=== PATIENT | male | born 1990 | race Caucasian/White ===

== ENCOUNTER 2018-10-20 12:03 | Emergency (ER) | payer BC ==
[2018-10-20 13:25] VITALS: BP 149/95
--- NOTE | 2018-10-20 13:34 | UC ---
Respiratory Complaint HPI - HPI Summary HPI Summary: Pt presents with c/o gradual onset of sneezing, runny nose, cough, sinus congestion X 1 week. Pt states cough is worsening with PND - History of Current Complaint Chief Complaint: UCRespiratory Stated Complaint: COUGH,CONGESTION Time Seen by Provider: 10/20/18 13:27 Hx Obtained From: Patient Onset/Duration: Gradual Onset, Lasting Days, Still Present, Worse Since - onset Timing: Constant Severity Initially: Mild Severity Currently: Mild Pain Intensity: 0 Character: Cough: Nonproductive Aggravating Factors: Exertion, Deep Breaths, Recumbent Position Alleviating Factors: Nothing Associated Signs And Symptoms: Positive: Nasal Congestion - Risk Factors Pulmonary Embolism Risk Factors: Negative Cardiac Risk Factors: Negative Pseudomonas Risk Factors: Negative Tuberculosis Risk Factors: Negative - Allergies/Home Medications Allergies/Adverse Reactions: Allergies Allergy/AdvReac Type Severity Reaction Status Date / Time No Known Allergies Allergy Verified 10/20/18 13:20 PMH/Surg Hx/FS Hx/Imm Hx Previously Healthy: Yes Other History Of: Negative For: HIV, Hepatitis B, Hepatitis C, Anticoagulant Therapy - Surgical History Surgical History: Yes Surgery Procedure, Year, and Place: Tonsillectomy - Family History Known Family History: Positive: Diabetes Negative: Cardiac Disease, Hypertension - Social History Occupation: Employed Full-time Lives: With Family Alcohol Use: Weekly Alcohol Amount: "Six pack ... two [days a week Substance Use Type: None Smoking Status (MU): Never Smoked Tobacco Type: Smokeless Tobacco Amount Used/How Often: 1/2 can daily Have You Smoked in the Last Year: Yes - uses smokeless tobacco Review of Systems All Other Systems Reviewed And Are Negative: Yes Constitutional: Positive: Chills Skin: Positive: Negative Eyes: Positive: Negative ENT: Positive: Nasal Discharge, Sinus Congestion Respiratory: Positive: Cough Cardiovascular: Positive: Negative Gastrointestinal: Positive: Negative Genitourinary: Positive: Negative Motor: Positive: Negative Neurovascular: Positive: Negative Musculoskeletal: Positive: Negative Neurological: Positive: Negative Psychological: Positive: Negative Is Patient Immunocompromised?: No Physical Exam Triage Information Reviewed: Yes Appearance: Obese Vital Signs: Initial Vital Signs Temp 97 F 10/20/18 13:21 Pulse 89 10/20/18 13:21 Resp 17 10/20/18 13:21 BP 149/95 10/20/18 13:21 Pulse Ox 98 10/20/18 13:21 Vital Signs Reviewed: Yes Eye Exam: Normal ENT: Positive: Nasal congestion Dental Exam: Normal Neck exam: Normal Respiratory: Positive: Decreased breath sounds Cardiovascular Exam: Normal Musculoskeletal Exam: Normal Neurological Exam: Normal Psychological Exam: Normal Skin Exam: Normal UC Diagnostic Evaluation - Laboratory O2 Sat by Pulse Oximetry: 98 Respiratory Course/Dx - Differential Dx/Diagnosis Differential Diagnosis/HQI/PQRI: Asthma, Bronchitis, Influenza Provider Diagnosis: Allergic rhinitis, Cough Discharge - Sign-Out/Discharge Documenting (check all that apply): Patient Departure All imaging exams completed and their final reports reviewed: No Studies - Discharge Plan Condition: Stable Disposition: HOME Prescriptions: Benzonatate CAP* [Tessalon 100 MG CAP*] 100 mg PO Q8H PRN #30 cap PRN Reason: Cough Fexofenadine/Pseudoephedrine [Fabiola-D 24 Hour Tablet] 1 each PO DAILY #10 tab.er.24h predniSONE TAB* [Deltasone 10 MG TAB*] 30 mg PO DAILY #12 tab Patient Education Materials: Viral Syndrome (ED), Acute Cough (ED) Referrals: [facility] [Outside] - As Soon As Possible Roxy Buchanan [Primary Care Provider] - Additional Instructions: Please follow up with a PCP as soon as possible. - Billing Disposition and Condition Condition: STABLE Disposition: Home
== END 2018-10-20 13:44 | disposition home or self-care (01) ==
LOC: UCCORT 12:03
DX: J30.9 Allergic rhinitis, unspecified (principal); R05 Cough; F17.220 Nicotine dependence, chewing tobacco, uncomplicated
CPT/HCPCS: 99212; G0463

== ENCOUNTER 2019-09-29 12:59 | Emergency (ER) | payer BC ==
[2019-09-29 13:20] VITALS: BP 145/75
[2019-09-29] MEDS ORDERED: Albuterol HFA INHALER* 8 gm MDI INH ONE (13:31)
--- NOTE | 2019-09-29 13:36 | UC ---
Respiratory Complaint HPI - HPI Summary HPI Summary: 29 yo male with productive cough x 2 weeks chest tight and wheezy no fever or chills no cp or sob no n/v/d has used inhaler in the past - History of Current Complaint Chief Complaint: UCGeneralIllness Stated Complaint: COUGH,CONGESTION Time Seen by Provider: 09/29/19 13:20 Hx Obtained From: Patient Onset/Duration: Gradual Onset, Lasting Weeks Timing: Constant Severity Initially: Mild Severity Currently: Moderate Pain Intensity: 0 Pain Scale Used: 0-10 Numeric Character: Cough: Productive Aggravating Factors: Exertion, Recumbent Position Alleviating Factors: Nothing Associated Signs And Symptoms: Positive: Wheezing. Negative: Dyspnea, Fever, Chills, Pleuritic Chest Pain, Hemoptysis, Dizziness, Calf Pain, Calf Swelling, Edema, URI, Nasal Congestion, Hoarseness, Sinus Discomfort - Allergies/Home Medications Allergies/Adverse Reactions: Allergies Allergy/AdvReac Type Severity Reaction Status Date / Time No Known Allergies Allergy Verified 09/29/19 13:15 Home Medications: Home Medications Guaifenesin/Dextromethorphan [Mucinex Dm ER 1,200-60 mg Tab] 1 tab PO ONCE 09/29 [History Confirmed 09/29/19] PMH/Surg Hx/FS Hx/Imm Hx Previously Healthy: Yes Respiratory History: Bronchitis Other History Of: Negative For: HIV, Hepatitis B, Hepatitis C, Anticoagulant Therapy - Surgical History Surgical History: Yes Surgery Procedure, Year, and Place: Tonsillectomy - Family History Known Family History: Positive: Diabetes Negative: Cardiac Disease, Hypertension - Social History Alcohol Use: Weekly Alcohol Amount: "Six pack ... two [days a week Substance Use Type: None Smoking Status (MU): Never Smoked Tobacco Type: Smokeless Tobacco Amount Used/How Often: 1/2 can daily Have You Smoked in the Last Year: Yes - uses smokeless tobacco Review of Systems All Other Systems Reviewed And Are Negative: Yes Constitutional: Positive: Negative Skin: Positive: Negative Eyes: Positive: Negative ENT: Positive: Negative Respiratory: Positive: Cough, Other - wheezing Cardiovascular: Positive: Negative Gastrointestinal: Positive: Negative Genitourinary: Positive: Negative Motor: Positive: Negative Neurovascular: Positive: Negative Musculoskeletal: Positive: Negative Neurological: Positive: Negative Psychological: Positive: Negative Physical Exam Triage Information Reviewed: Yes Appearance: Well-Appearing, No Pain Distress, Well-Nourished Vital Signs: Initial Vital Signs Temp 97.9 F 09/29/19 13:16 Pulse 76 09/29/19 13:16 Resp 16 09/29/19 13:16 BP 145/75 09/29/19 13:16 Pulse Ox 99 09/29/19 13:16 Vital Signs Reviewed: Yes Eyes: Positive: Conjunctiva Clear ENT: Positive: Hearing grossly normal, Uvula midline. Negative: Nasal congestion, Trismus, Muffled voice, Hoarse voice Dental Exam: Normal Neck: Positive: Supple, Nontender, No Lymphadenopathy Respiratory: Positive: No respiratory distress, No accessory muscle use, Wheezing Cardiovascular: Positive: RRR. Negative: Tachycardia Musculoskeletal: Positive: ROM Intact, No Edema Neurological: Positive: Alert Psychological Exam: Normal Skin Exam: Normal Respiratory Course/Dx - Differential Dx/Diagnosis Provider Diagnosis: Acute bronchitis, Elevated BP without diagnosis of hypertension Discharge ED - Sign-Out/Discharge Documenting (check all that apply): Patient Departure All imaging exams completed and their final reports reviewed: No Studies - Discharge Plan Condition: Stable Disposition: HOME Prescriptions: Amoxicillin PO (*) [Amoxicillin 875 MG (*)] 875 mg PO BID #14 tab predniSONE TAB* [Deltasone 20 MG TAB*] 40 mg PO DAILY #8 tab Patient Education Materials: Acute Bronchitis (ED), How to Use a Metered-Dose Inhaler and a Spacer (ED) Forms: *Work Release Referrals: Chas Gonzalez DO [Primary Care Provider] - If Needed (recheck BP in 2-20 weeks ( it was a little high here)) Additional Instructions: use inhaler 2 puffs 4x day for a week you can continue mucinex recheck in 4-5 days if not better - Billing Disposition and Condition Condition: STABLE Disposition: Home
== END 2019-09-29 14:00 | disposition home or self-care (01) ==
LOC: UCCORT 12:59
DX: J20.9 Acute bronchitis, unspecified (principal); R03.0 Elevated blood-pressure reading, without diagnosis of hypertension
CPT/HCPCS: 99213; A9270-GY; G0463; J7512

== ENCOUNTER 2019-12-30 15:14 | Emergency (ER) | payer BC ==
[2019-12-30 15:46] VITALS: BP 143/100
--- NOTE | 2019-12-30 16:11 | UC ---
FLU HPI - HPI Summary HPI Summary: Pt presents with c/o cough and runny nose. Pt reports that cough has been worsening over the last "few days" - History of Current Complaint Chief Complaint: UCGeneralIllness Stated Complaint: COUGH Time Seen by Provider: 12/30/19 15:56 Hx Obtained From: Patient Onset/Duration: Gradual Onset, Lasting Days, Still Present Severity Currently: Mild Severity Initially: Moderate Pain Intensity: 0 Associated Signs & Symptoms: Positive: Cough Related Hx: Possible Flu/Infectious Exposure - Risk Factors Influenza Risk Factors: Negative - Allergy/Home Medications Allergies/Adverse Reactions: Allergies Allergy/AdvReac Type Severity Reaction Status Date / Time No Known Allergies Allergy Verified 12/30/19 15:46 Home Medications: Home Medications Fexofenadine (NF) [Fabiola 180 (NF)] 180 mg PO DAILY #10 tab 12/30/19 [Rx] PMH/Surg Hx/FS Hx/Imm Hx Previously Healthy: Yes Other History Of: Negative For: HIV, Hepatitis B, Hepatitis C, Anticoagulant Therapy - Surgical History Surgical History: Yes Surgery Procedure, Year, and Place: Tonsillectomy - Family History Known Family History: Positive: Diabetes Negative: Cardiac Disease, Hypertension - Social History Occupation: Employed Full-time Lives: Alone Alcohol Use: Weekly Alcohol Amount: "Six pack ... two [days a week Substance Use Type: None Smoking Status (MU): Light Every Day Tobacco Smoker Type: Smokeless Tobacco Amount Used/How Often: 1/2 can daily Have You Smoked in the Last Year: Yes - uses smokeless tobacco - Immunization History Vaccination Up to Date: No Review of Systems All Other Systems Reviewed And Are Negative: Yes Constitutional: Positive: Negative Skin: Positive: Negative Eyes: Positive: Negative ENT: Positive: Nasal Discharge Respiratory: Positive: Cough Cardiovascular: Positive: Negative Gastrointestinal: Positive: Negative Genitourinary: Positive: Negative Motor: Positive: Negative Neurovascular: Positive: Negative Musculoskeletal: Positive: Negative Neurological/Mental Status: Positive: Negative Psychological: Positive: Negative Is Patient Immunocompromised?: No Physical Exam Triage Information Reviewed: Yes Appearance: Well-Appearing Vital Signs: Initial Vital Signs Temp 98.1 F 12/30/19 15:41 Pulse 87 12/30/19 15:41 Resp 14 12/30/19 15:41 BP 143/100 12/30/19 15:41 Pulse Ox 98 12/30/19 15:41 Vital Signs Reviewed: Yes Eye Exam: Normal ENT: Positive: Nasal congestion Respiratory: Positive: No respiratory distress, Other: - cough Musculoskeletal Exam: Normal Neurological Exam: Normal Psychological Exam: Normal Skin Exam: Normal Flu Course/Dx - Course Course Of Treatment: Pt was tested for COVID-19 and given self quarantine information - Differential Dx/Diagnosis Differential Diagnosis/HQI/PQRI: Bronchitis, Influenza, Upper Respiratory Infection Provider Diagnosis: Viral syndrome Discharge ED - Sign-Out/Discharge Documenting (check all that apply): Patient Departure All imaging exams completed and their final reports reviewed: No Studies - Discharge Plan Condition: Stable Disposition: HOME Prescriptions: Fexofenadine (NF) [Fabiola 180 (NF)] 180 mg PO DAILY #10 tab Forms: COVID-19 Tested & Isolation Referrals: Chas Gonzalez DO [Primary Care Provider] - If Needed - Billing Disposition and Condition Condition: STABLE Disposition: Home
== END 2019-12-30 16:17 | disposition home or self-care (01) ==
LOC: UCCORT 15:14
DX: B34.9 Viral infection, unspecified (principal); F17.290 Nicotine dependence, other tobacco product, uncomplicated
CPT/HCPCS: 99212; G0463; U0002

== ENCOUNTER 2020-01-04 13:42 | Emergency (ER) | payer BC ==
--- NOTE | 2020-01-04 14:42 | UC ---
Throat Pain/Nasal Bab[place]unde HPI - HPI Summary HPI Summary: 29yo male presenting with nasal congestion/pressure and productive cough of yellow sputum for more than 1 week. Notes some sob and chest tightness with coughing fits. States this seems to happen every year when he gets bronchitis. Denies wheezing. Denies n/v. Denies fever and chills. Denies body aches. Taking mucinex without relief. States he tested negative for covid19. Denies concern for the flu. Patient adds that he has a splinter in his thub that he tried to remove a few days ago that it now swollen, red, and tender. Is concerned for infection. Denies drainage or bleeding. - History of Current Complaint Chief Complaint: UCRespiratory Stated Complaint: COUGH Hx Obtained From: Patient Pain Intensity: 1 Pain Scale Used: 0-10 Numeric - Allergies/Home Medications Allergies/Adverse Reactions: Allergies Allergy/AdvReac Type Severity Reaction Status Date / Time No Known Allergies Allergy Verified 01/04/20 13:44 Home Medications: Home Medications Fexofenadine (NF) [Fabiola 180 (NF)] 180 mg PO DAILY #10 tab 12/30/19 [Rx Confirmed 01/04/20] Albuterol HFA INHALER* [Ventolin HFA Inhaler*] 1 - 2 puff INH Q6H PRN #1 mdi [Rx] DOXYcycline CAP(*) [DOXYcycline 100MG CAP(*)] 100 mg PO BID #14 cap 01/04/20 [Rx ] guaiFENesin [Mucinex] 1,200 mg PO BID PRN 01/04/20 [History Confirmed 01/04/20] PMH/Surg Hx/FS Hx/Imm Hx Respiratory History: Bronchitis Other History Of: Negative For: HIV, Hepatitis B, Hepatitis C, Anticoagulant Therapy - Surgical History Surgical History: Yes Surgery Procedure, Year, and Place: Tonsillectomy - Family History Known Family History: Positive: Diabetes Negative: Cardiac Disease, Hypertension - Social History Alcohol Use: Weekly Alcohol Amount: "Six pack ... two [days a week Substance Use Type: None Smoking Status (MU): Heavy Every Day Tobacco Smoker Type: Smokeless Tobacco Amount Used/How Often: 1/2 can daily Have You Smoked in the Last Year: - uses smokeless tobacco - Immunization History Vaccination Up to Date: No Review of Systems All Other Systems Reviewed And Are Negative: Yes Constitutional: Positive: Negative Skin: Positive: Other - "infected splinter right thumb" ENT: Positive: Sinus Congestion, Sinus Pain/Tenderness Respiratory: Positive: Shortness Of Breath - with coughing, Cough Cardiovascular: Positive: Negative Gastrointestinal: Positive: Negative. Negative: Vomiting, Nausea Musculoskeletal: Positive: Negative. Negative: Myalgia Neurological/Mental Status: Positive: Negative Physical Exam Triage Information Reviewed: Yes Appearance: Well-Appearing, No Pain Distress, Well-Nourished Vital Signs: Initial Vital Signs Pulse 80 01/04/20 13:46 Resp 18 01/04/20 13:46 Vital Signs Reviewed: Yes Eyes: Positive: Conjunctiva Clear ENT: Positive: Hearing grossly normal Neck: Positive: Supple Respiratory: Positive: No respiratory distress, No accessory muscle use Cardiovascular Exam: Other - skin reflects adequate perfusion Neurological: Positive: Alert Psychological: Positive: Age Appropriate Behavior Skin: Positive: Other - erythema and mild edema of pulp of right thumb Throat Pain/Nasal Course/Dx - Course Course Of Treatment: To decrease transmission of covid19, I interviewed the patient using telemedicine. Patient verbally consented to telemedicine visit. This does limit the physical exam. I discussed viral versus bacterial illness with the patient. Patient states concern for sinus infection and states that he usually gets an antibiotic when he has bronchitis. I treated with doxycycline to cover bacterial source of respiratory illness and also possible infection of splinter in right thumb. Instructed to continue warm soaks of the thumb. I also provided the patient with an inhaler for any shortness of breath or wheezing. Instructed to return with any new or worsening symptoms. Patient voiced understanding and agreed with the treatment plan. - Differential Dx/Diagnosis Provider Diagnosis: Finger, superficial foreign body (splinter), infected, Acute bronchitis, Sinusitis Discharge ED - Sign-Out/Discharge Documenting (check all that apply): Patient Departure All imaging exams completed and their final reports reviewed: No Studies - Discharge Plan Condition: Stable Disposition: HOME Prescriptions: Albuterol HFA INHALER* [Ventolin HFA Inhaler*] 1 - 2 puff INH Q6H PRN #1 mdi PRN Reason: Sob/Wheezing DOXYcycline CAP(*) [DOXYcycline 100MG CAP(*)] 100 mg PO BID #14 cap Patient Education Materials: Soft Tissue Foreign Body (ED), Sinusitis (ED), Acute Bronchitis (ED) Forms: *Work Release Referrals: Stuppel DO,Chas [Primary Care Provider] - Additional Instructions: Take doxycycline as prescribed. Take with food to avoid stomach upset. Use the inhaler as needed for shortness of breath and chest tightness. Continue with warm soaks/compresses of the thumb. You may continue with mucinex. Increase your fluid intake. Return if you experience new or worsening symptoms. - Billing Disposition and Condition Condition: STABLE Disposition: Home
--- NOTE | 2020-01-05 08:10 | UC ---
- Progress Note Progress Note: Your coronavirus test was negative You no longer need to self quarantine Recommend continue to social distance If your symptoms persist or worsen, recommend follow up with your PCP or return to urgent care Course/Dx - Diagnoses Provider Diagnoses: Finger, superficial foreign body (splinter), infected, Acute bronchitis, Sinusitis Discharge ED - Sign-Out/Discharge Documenting (check all that apply): Post-Discharge Follow Up All imaging exams completed and their final reports reviewed: No Studies - Discharge Plan Condition: Stable Disposition: HOME Prescriptions: Albuterol HFA INHALER* [Ventolin HFA Inhaler*] 1 - 2 puff INH Q6H PRN #1 mdi PRN Reason: Sob/Wheezing DOXYcycline CAP(*) [DOXYcycline 100MG CAP(*)] 100 mg PO BID #14 cap Patient Education Materials: Soft Tissue Foreign Body (ED), Sinusitis (ED), Acute Bronchitis (ED) Forms: *Work Release Referrals: Chas Gonzalez DO [Primary Care Provider] - Additional Instructions: Take doxycycline as prescribed. Take with food to avoid stomach upset. Use the inhaler as needed for shortness of breath and chest tightness. Continue with warm soaks/compresses of the thumb. You may continue with mucinex. Increase your fluid intake. Return if you experience new or worsening symptoms. - Billing Disposition and Condition Condition: STABLE Disposition: Home
== END 2020-01-04 14:51 | disposition home or self-care (01) ==
LOC: UCCORT 13:42
DX: J20.9 Acute bronchitis, unspecified (principal); J32.9 Chronic sinusitis, unspecified; S60.351A Superficial foreign body of right thumb, initial encounter; X58.XXXA Exposure to other specified factors, initial encounter; Y92.9 Unspecified place or not applicable; F17.220 Nicotine dependence, chewing tobacco, uncomplicated
CPT/HCPCS: 99212; G0463